=== PATIENT | female | born 1990 | race Caucasian/White ===

== ENCOUNTER 2018-08-26 05:38 | Inpatient (IN) | payer OTHER ==
[~2018-08-26] VITALS: Ht 167.6 cm; Wt 88.5 kg
[2018-08-26] MEDS ORDERED: NEWBORN KIT ONE (06:27)
[2018-08-26] MEDS ORDERED: SODIUM CITRATE/CITRIC ACID 15 ML UDC ONE (06:28)
[2018-08-26] MEDS ORDERED: METOCLOPRAMIDE 5 MG/ML, 2ML ONE (06:28)
[2018-08-26 06:29] LABS: BASOPHILS # (AUTO) 0.04 x10^3/uL (0-0.1); BASOPHILS % (AUTO) 1 % (0-1); EOSINOPHILS # (AUTO) 0.04 x10^3/uL (0-0.4); EOSINOPHILS % (AUTO) 1 % (1-7); LYMPHOCYTES # (AUTO) 2.22 x10^3/uL (1-3.4); LYMPHOCYTES % (AUTO) 27 % (22-44); MD NO; MEAN CORPUSCULAR HEMOGLOBIN 27.1 pg (27.0-34.8); MEAN CORPUSCULAR HGB CONC 32.5 g/dL (32.4-35.8); MEAN CORPUSCULAR VOLUME 83.5 fL (80-100); MEAN PLATELET VOLUME 10.1 fL (7.4-10.4); MONOCYTES # (AUTO) 0.56 x10^3/uL (0.2-0.8); MONOCYTES % (AUTO) 7 % (2-9); NEUTROPHILS # (AUTO) 5.43 x10^3/uL (1.8-6.8); NEUTROPHILS % (AUTO) 66 % (42-75); PLATELET COUNT 165 x10^3/uL (130-400); RED BLOOD COUNT 4.82 x10^6/uL (3.82-5.3); RED CELL DISTRIBUTION WIDTH 13.6 % (9.6-15.2)
[2018-08-26] MEDS: LACTATED RINGERS 1,000 ML IV SCH ×8 (06:29→22:29)
[2018-08-26] MEDS ORDERED: LACTATED RINGERS 1,000 ML IVBOLUS ONE (06:30)
[2018-08-26] MEDS ORDERED: DIPH,PERTUSS(ACELL),TET VAC/PF NC IM-VACC PRN (06:30)
[2018-08-26] MEDS ORDERED: ACETAMINOPHEN 325 MG TABLET PO PRN ×2 (06:30)
[2018-08-26] MEDS ORDERED: CALCIUM CARBONATE 500 MG TAB.CHEW PO PRN (06:30)
[2018-08-26] MEDS ORDERED: METOCLOPRAMIDE 5 MG/ML, 2ML IV ONE (06:30)
[2018-08-26] MEDS ORDERED: ONDANSETRON 2MG/ML, 2ML IVPush ONE (06:30)
[2018-08-26] MEDS ORDERED: MISOPROSTOL 200 MCG TABLET PR PRN (06:30)
[2018-08-26] MEDS ORDERED: ONDANSETRON 2MG/ML, 2ML IV PRN (06:30)
[2018-08-26] MEDS ORDERED: OXYcodone/APAP 5/325MG TABLET PO PRN (06:30)
[2018-08-26] MEDS ORDERED: morphine SULFATE 10 MG/ML, 1ML IM PRN (06:30)
[2018-08-26] MEDS ORDERED: MORPHINE SULFATE 4 MG/ML, 1ML IVPush PRN (06:30)
[2018-08-26] MEDS ORDERED: MEASLES,MUMPS&RUBELLA VACC/PF 0.5 ML SQ-VACC PRN (06:30)
[2018-08-26] MEDS ORDERED: SODIUM CITRATE/CITRIC ACID 15 ML UDC PO ONE (07:00)
[2018-08-26] MEDS ORDERED: morphine SULFATE/PF 1 MG/ML, 10ML ONE (07:08)
[2018-08-26] MEDS ORDERED: ONDANSETRON 2MG/ML, 2ML ONE (07:23)
[2018-08-26] MEDS ORDERED: OXYTOCIN 10 UNITS/ML, 1ML ONE (07:23)
[2018-08-26] MEDS ORDERED: CEFAZOLIN 1,000 MG ONE (07:23)
[2018-08-26] MEDS ORDERED: WATER-INJECTION,STERILE 10 ML IV ONE (07:23)
[2018-08-26] MEDS ORDERED: DEXAMETHASONE 4 MG/ML, 1ML ONE (07:23)
[2018-08-26] MEDS ORDERED: KETOROLAC 30 MG/1 ML ONE (07:23)
[2018-08-26] MEDS ORDERED: OXYcodone 5 MG/5 ML ORAL.SOL UDC PO ONE (08:06)
[2018-08-26] MEDS ORDERED: OXYTOCIN 30U/ 0.9% NaCL 500ML 500 ML ONE (08:21)
[2018-08-26] MEDS: OXYTOCIN 30U/ 0.9% NaCL 500ML 500 ML IV SCH ×2 (08:26→16:29)
[2018-08-26] MEDS: PRENATAL VIT/IRON/FA 1 EACH TABLET PO SCH (09:00)
[2018-08-26] MEDS ORDERED: OXYcodone 5 MG/5 ML ORAL.SOL UDC ONE (09:06)
[2018-08-26 10:10] VITALS: BP 135/83
[2018-08-26] MEDS ORDERED: NALOXONE 0.4 MG/ML, 1ML IV PRN (11:00)
[2018-08-26] MEDS ORDERED: NO SEDATIVES, TRANQUILIZERS OR ANTIEMETICS XX SCH (11:00)
[2018-08-26] MEDS ORDERED: EPHEDRINE 50 MG/ML, 1ML IVPush PRN (11:00)
[2018-08-26] MEDS ORDERED: morphine SULFATE 10 MG/ML, 1ML IVPush PRN (11:00)
[2018-08-26] MEDS ORDERED: DIPHENHYDRAMINE 50 MG/ML, 1ML IV PRN (11:00)
[2018-08-26] MEDS ORDERED: ONDANSETRON 2MG/ML, 2ML IVPush PRN (11:00)
[2018-08-26] MEDS: OXYcodone/APAP 5/325MG TABLET PO PRN (13:40)
[2018-08-26] MEDS: KETOROLAC 30 MG/1 ML IV SCH ×2 (13:47→20:20)
[2018-08-26 15:42] LABS: MEAN CORPUSCULAR HEMOGLOBIN 27.1 pg (27.0-34.8); MEAN CORPUSCULAR HGB CONC 32.7 g/dL (32.4-35.8); MEAN PLATELET VOLUME 10.2 fL (7.4-10.4); PLATELET COUNT 148 x10^3/uL (130-400); RED BLOOD COUNT 4.56 x10^6/uL (3.82-5.3)
[2018-08-26 16:00] VITALS: BP 131/73
[2018-08-26 16:11] LABS: BASOPHILS # (AUTO) 0.03 x10^3/uL (0-0.1); BASOPHILS % (AUTO) 0 % (0-1); EOSINOPHILS % (AUTO) 0 % (1-7); LYMPHOCYTES # (AUTO) 1.32 x10^3/uL (1-3.4); LYMPHOCYTES % (AUTO) 10 % (22-44); MD SCAN; MONOCYTES # (AUTO) 0.45 x10^3/uL (0.2-0.8); MONOCYTES % (AUTO) 3 % (2-9); NEUTROPHILS # (AUTO) 11.63 x10^3/uL (1.8-6.8); NEUTROPHILS % (AUTO) 87 % (42-75)
[2018-08-26 20:00] VITALS: BP 127/75
[2018-08-27 00:30] VITALS: BP 124/83
[2018-08-27] MEDS: LACTATED RINGERS 1,000 ML IV SCH ×5 (02:29→22:29)
[2018-08-27] MEDS: OXYTOCIN 30U/ 0.9% NaCL 500ML 500 ML IV SCH ×3 (02:29→22:29)
[2018-08-27] MEDS: KETOROLAC 30 MG/1 ML IV SCH ×4 (02:36→20:20)
[2018-08-27 04:00] VITALS: BP 130/80
[2018-08-27] MEDS ORDERED: OXYcodone/APAP 5/325MG TABLET PO PRN (04:30)
[2018-08-27 07:10] VITALS: BP 135/85
[2018-08-27] MEDS: PRENATAL VIT/IRON/FA 1 EACH TABLET PO SCH (08:35)
[2018-08-27] MEDS: SIMETHICONE 80 MG CHEW TAB PO PRN ×2 (08:35→20:20)
[2018-08-27] MEDS: DOCUSATE 100 MG CAPSULE PO PRN ×2 (08:35→20:20)
[2018-08-27] MEDS: OXYcodone/APAP 5/325MG TABLET PO PRN ×3 (08:38→22:51)
[2018-08-27 20:30] VITALS: BP 131/83
[2018-08-28] MEDS: KETOROLAC 30 MG/1 ML IV SCH ×2 (02:49→08:23)
[2018-08-28] MEDS: SIMETHICONE 80 MG CHEW TAB PO PRN (02:49)
[2018-08-28] MEDS: OXYcodone/APAP 5/325MG TABLET PO PRN ×5 (02:55→21:18)
[2018-08-28] MEDS: LACTATED RINGERS 1,000 ML IV SCH ×3 (06:29→22:29)
[2018-08-28 07:45] VITALS: BP 118/76
[2018-08-28] MEDS: DOCUSATE 100 MG CAPSULE PO PRN ×2 (08:23→21:18)
[2018-08-28] MEDS: PRENATAL VIT/IRON/FA 1 EACH TABLET PO SCH (08:23)
[2018-08-28] MEDS: OXYTOCIN 30U/ 0.9% NaCL 500ML 500 ML IV SCH ×2 (08:29→18:29)
[2018-08-28] MEDS: IBUPROFEN 800 MG TABLET PO PRN (17:07)
[2018-08-28 19:00] VITALS: BP 138/83
[2018-08-29] MEDS: IBUPROFEN 800 MG TABLET PO PRN ×2 (01:41→10:08)
[2018-08-29] MEDS: OXYcodone/APAP 5/325MG TABLET PO PRN ×3 (01:41→10:08)
[2018-08-29] MEDS: OXYTOCIN 30U/ 0.9% NaCL 500ML 500 ML IV SCH (04:29)
[2018-08-29] MEDS: LACTATED RINGERS 1,000 ML IV SCH (06:29)
[2018-08-29 07:48] VITALS: BP 119/80
[2018-08-29] MEDS ORDERED: IBUP-1222 PO (08:32)
[2018-08-29] MEDS ORDERED: OXYC-302 PO (08:32)
[2018-08-29] MEDS: DOCUSATE 100 MG CAPSULE PO PRN (10:55)
== END 2018-08-29 11:20 | disposition home or self-care (01) | DRG 787 ==
LOC: LDOP 05:38 → LDIP 06:06 → 2NW 10:03
PROVIDERS: ADMIT Obstetrics & Gynecology; ATTEND Obstetrics & Gynecology
PROC: 10D00Z1 Extraction of Products of Conception, Low, Open Approach (ICD-10-PCS; principal; 2018-08-26)
DX: O32.1XX0 Maternal care for breech presentation, not applicable or unspecified (principal); O99.355 Diseases of the nervous system complicating the puerperium; O42.92 Full-term premature rupture of membranes, unspecified as to length of time between rupture and onset of labor; G89.18 Other acute postprocedural pain; Z3A.38 38 weeks gestation of pregnancy; Z37.0 Single live birth
CPT/HCPCS: 36415; 82803; 85025; 86850; 86900; 89060; G0378; J0690; J1100; J1885; J2274; J2405; J2590; J2765; J7120; Q0114

== ENCOUNTER 2018-09-03 04:28 | Emergency (ER) | payer OTHER ==
[~2018-09-03] VITALS: Ht 167.6 cm; Wt 81.3 kg
[~2018-09-03 04:28] MED LIST: IBUP-1222 PO; OXYC-302 PO
--- NOTE | 2018-09-03 04:35 | NUR ---
Had last monday and pain lower L quadrant and drainage over surgical site. "it feels like something is moving in there." Denies further gu s/s. per triage note pt ambulated to go to with stable gait following
[2018-09-03 05:34] VITALS: BP 154/95
--- NOTE | 2018-09-03 05:38 | NUR ---
given dc instruction pt understood pt up ambulated to check out
== END 2018-09-03 05:40 | disposition home or self-care (01) ==
LOC: ED 05:19
DX: R23.8 Other skin changes (principal)
CPT/HCPCS: 99281; 99282